=== PATIENT | female | born 1975 ===

== ENCOUNTER 2016-06-27 14:13 | Inpatient (IN) | payer SELFPAY ==
[2016-06-27] MEDS ORDERED: Sodium Chloride 0.9% 1,000 ML IV STA (14:57)
--- NOTE | 2016-06-27 15:34 | ED PDOC ---
HPI: General Adult Time Seen by Provider: 06/27/16 14:44 Chief Complaint (Nursing): Fever Chief Complaint (Provider): Fever History Per: Patient History/Exam Limitations: no limitations Onset/Duration Of Symptoms: Days (1 day) Have you had recent travel within the past 21 days to any of the following countries: [place], [place], [place] or [place]?: No Current Symptoms Are (Timing): Still Present Severity: Moderate Additional Complaint(s): Lauren Granda is a 41 year old female, with a past medical history of type 2 diabetes mellitus and hypertension, who presents to the emergency department for the evaluation of a fever, that the patient has been experiencing for 1 day. Associated headache, body aches, back pain, and "burning" dysuria are currently present. Denies photophobia, neck stiffness, urinary frequency, hematuria, a rash, edema, URI symptoms, or GI symptoms. Of note, patient has no known sick contacts. PMD: [facility] Past Medical History Reviewed: Historical Data, Nursing Documentation, Vital Signs Vital Signs: Last Vital Signs Temp 98 F 06/29/16 21:15 Pulse 87 06/29/16 21:15 Resp 20 06/29/16 21:15 BP 109/71 06/29/16 21:15 Pulse Ox 97 06/29/16 21:15 - Medical History PMH: Diabetes (type II), HTN, Hypercholesterolemia - Surgical History Surgical History: No Surg Hx - Family History Family History: States: No Known Family Hx - Social History Current smoker - smoking cessation education provided: No Ex-Smoker (has not smoked in the last 12 months): No Alcohol: None - Immunization History Hx Tetanus Toxoid Vaccination: No Hx Influenza Vaccination: Yes Hx Pneumococcal Vaccination: No - Home Medications Home Medications: Ambulatory Orders Medication Instructions Recorded Glipizide [Glucotrol] 10 mg PO BID 06/27/16 Lovastatin [Lovastatin] 40 mg PO DAILY 06/27/16 MetFORMIN [glucoPHAGE] 1,000 mg PO BID 06/27/16 SITagliptin [Januvia] 100 mg PO DAILY 06/27/16 Terbinafine HCl [Lamisil] 250 mg PO DAILY 06/27/16 - Allergies Allergies/Adverse Reactions: Allergies Allergy/AdvReac Type Severity Reaction Status Date / Time No Known Allergies Allergy Verified 09/26/13 17:05 Review of Systems ROS Statement: Except As Marked, All Systems Reviewed And Found Negative Constitutional: Positive for: Fever Eyes: Negative for: Other (photophobia) ENT: Negative for: Other (neck stiffness) Cardiovascular: Negative for: Edema Respiratory: Negative for: Other (URI symptoms) Gastrointestinal: Negative for: Other (GI symptoms) Genitourinary Female: Positive for: Dysuria ("burning"). Negative for: Frequency, Hematuria Musculoskeletal: Positive for: Back Pain, Other (body aches) Skin: Negative for: Rash Neurological: Positive for: Headache Physical Exam - Reviewed Nursing Documentation Reviewed: Yes Vital Signs Reviewed: Yes - Physical Exam Appears: Positive for: Non-toxic, In Acute Distress (fever at 101.3) Head Exam: Positive for: ATRAUMATIC, NORMAL INSPECTION, NORMOCEPHALIC Skin: Positive for: Normal Color, Warm, Dry Eye Exam: Positive for: EOMI, Normal appearance, PERRL ENT: Positive for: Normal ENT Inspection, Pharynx Is (clear), Other (tacky mucous membranes). Negative for: Pharyngeal Erythema, Tonsillar Exudate Neck: Positive for: Normal (no meningismus), Painless ROM, Supple Cardiovascular/Chest: Positive for: Regular Rate, Rhythm, Tachycardia. Negative for: Murmur Respiratory: Positive for: Normal Breath Sounds. Negative for: Wheezing, Respiratory Distress Gastrointestinal/Abdominal: Positive for: Normal Exam, Soft. Negative for: Tenderness Back: Positive for: Normal Inspection. Negative for: Decreased ROM Extremity: Positive for: Normal ROM. Negative for: Tenderness, Deformity Lymphatic: Negative for: Adenopathy Neurologic/Psych: Positive for: Alert, Oriented. Negative for: Motor/Sensory Deficits - Laboratory Results Result Diagrams: 06/29/16 05:50 06/28/16 06:20 - ECG O2 Sat by Pulse Oximetry: 98 (RA) Pulse Ox Interpretation: Normal Medical Decision Making Medical Decision Makin:44 Initial Impression: Fever Initial Plan: * Venous Blood Gas Shock Panel * CBC * CMP * PT/PTT * Lipase * Magnesium * Phosphorous * Urine * Urinalysis * Influenza A/B * Rapid Strep Group A Antigen * Sodium Chloride 0.9% 1,000 ml IV at 1,000 mls/hr * Toradol 15 mg IV * Acetaminophen 975 mg PO * Blood Culture * Urine Culture * Glucose, Blood, POC * Reevaluation Accession No. : [id number] Patient Name / ID : TORO UPTON / [id number] Exam Date : 06/27/2016 17:09:03 ( Approved ) Study Comment : Sex / Age : F / 41Y Creator : Jerad Brown MD Dictator : Jerad Brown MD Brick Chimney Builder : Pocket Grinder Operator : Jerad Brown MD Approver2 : Report Date : 06/27/2016 18:13:50 My Comment : PROCEDURE: CT Abdomen and pelvis dated 06/27/2016 HISTORY: Bilateral flank pain. Fever and dysuria. COMPARISON: Comparison made with CT scan abdomen and pelvis 05/26/2007. TECHNIQUE: Contiguous helical/transaxial sections of the abdomen pelvis performed without oral or intravenous contrast material. Coronal and Sagittal reformats generated. Radiation dose: Total exam DLP = 1077.47 mGy-cm. This CT exam was performed using one or more of the following dose reduction techniques: Automated exposure control, adjustment of the mA and/or kV according to patient size, and/or use of iterative reconstruction technique. FINDINGS: LOWER THORAX: Unremarkable. The lung bases are clear without focal consolidation or effusion. Minor bibasilar atelectasis. Small calcification left posteromedial lung base likely representing small calcified granuloma. No evidence of basilar pneumothorax. LIVER: . Liver is enlarged measuring over 23 cm in CC dimension. Moderate fatty hepatic infiltration. No obvious hepatic mass or collection. GALLBLADDER AND BILE DUCTS: Gallbladder is physiologically distended. No evidence of intraluminal gallbladder calculi PANCREAS: Visualized portions the pancreas grossly unremarkable. SPLEEN: The spleen exhibits normal size an attenuation pattern. ADRENALS: The no adrenal lesions. KIDNEYS AND URETERS: Kidneys exhibit relatively symmetric size. Tiny 2.4 mm nonobstructing calcification lower pole left kidney. There is a 2nd punctate calcification just medial and posterior to this calcification. No definitive right-sided calcifications. No evidence of hydronephrosis. BLADDER: Urinary bladder is appears incompletely distended which may account for slight thick-walled appearance. The possibility of a cystitis must be considered given the patient's history of fever and dysuria. . No evidence of intraluminal urinary bladder calculi. REPRODUCTIVE: In situ Copper-T IUD APPENDIX: Normal-appearing of fluid filled appendix seen on axial image number [id number]. No periappendiceal inflammatory changes. BOWEL: Evaluation of the bowel is limited due to the lack of oral contrast material. The stomach is incompletely distended which presumably accounts for thick- walled appearance. The possibility of gastritis or other intrinsic/ invasive wall lesion cannot be excluded. No evidence of acute mechanical bowel obstruction. Moderate amount of stool seen within the transverse and to a lesser degree descending sigmoid colon consistent with mild fecal retention/ constipation. PERITONEUM: Unremarkable. No fluid collection. No free air. Joya fat containing umbilical hernia. LYMPH NODES: No significant bulky adenopathy VASCULATURE: No evidence of abdominal aortic aneurysm BONES: Minor multilevel degenerative spondylosis of the lower thoracic and lumbar spine OTHER FINDINGS: None. IMPRESSION: Tiny nonobstructing calcifications of lower pole left kidney. No evidence of hydronephrosis. Wall thickening of the urinary bladder alum may in part be due to underdistention however given the patient's history of fever and dysuria, cystitis must be considered as well. Hepatomegaly with moderate to fairly significant diffuse fatty hepatic infiltration. See above discussion for additional findings and details. In situ Copper-T IUD. Labs demonstrate UTI. Clinically appears as pyelonephritis. IGGY HORVATH resident for [facility] Scribe Attestation: Documented by Oliver Bowman, acting as a scribe for Little Ramirez MD. Provider Scribe Attestation: All medical record entries made by the Scribe were at my direction and personally dictated by me. I have reviewed the chart and agree that the record accurately reflects my personal performance of the history, physical exam, medical decision making, and the department course for this patient. I have also personally directed, reviewed, and agree with the discharge instructions and disposition. Disposition - Clinical Impression Clinical Impression: Pyelonephritis - Disposition Disposition Time: 18:00 Condition: SERIOUS - Pt Status Changed To: Hospital Disposition Of: Observation - POA Present On Arrival: Poor Glycemic Control
[2016-06-27 15:36] LABS: VENOUS BLOOD GAS BASE EXCESS -1.5 mmol/L (0.0-2.0); VENOUS BLOOD GAS PCO2 37 mmHg (40-60)
[2016-06-27 15:38] LABS: BASO % 0.3 % (0.0-2.0); EOS % 0.1 % (0.0-4.0); HEMATOCRIT 38.7 % (34.0-47.0); LYMPH # 0.5 K/uL (1.0-4.3); LYMPH % 4.9 % (20.0-40.0); MEAN CELL VOLUME 85.1 fl (81.0-99.0); MEAN PLATELET VOLUME 8.3 fl (7.2-11.7); MONO # 0.4 K/uL (0.0-0.8); MONO % 3.2 % (0.0-10.0); NEUT # 10.1 K/uL (1.8-7.0); NEUT % 91.5 % (50.0-75.0); NRBC % 0.1 % (0.0-0.0); PLATELET COUNT 171 K/uL (130-400); RED CELL DISTRIBUTION WIDTH 13.3 % (11.5-14.5); WHITE BLOOD COUNT 11.1 K/uL (4.8-10.8)
[2016-06-27 15:43] LABS: URINE BILIRUBIN NEGATIVE (NEGATIVE); URINE BLOOD NEGATIVE (NEGATIVE); URINE COLOR YELLOW (YELLOW); URINE GLUCOSE (UA) >=500 mg/dL (Normal); URINE KETONE 80 mg/dL (NEGATIVE); URINE PROTEIN 30 mg/dL (NEGATIVE)
[2016-06-27 15:44] LABS: RBC URINE 5 /hpf (0-3); URINE BACTERIA RARE (<OCC); URINE LEUKOCYTE ESTERASE NEGATIVE Leu/uL (Negative); WBC URINE 23 /hpf (0-5)
[2016-06-27 15:47] LABS: ALB/GLOB RATIO 1.5 (1.0-2.1); ALKALINE PHOSPHATASE 98 U/L (38-126); ALT/SGPT 46 U/L (9-52); AST/SGOT 33 U/L (14-36); BILIRUBIN,TOTAL 0.7 mg/dl (0.2-1.3); BLOOD UREA NITROGEN 7 mg/dl (7-17); CALCIUM 9.2 mg/dL (8.4-10.2); CARBON DIOXIDE 21 mmol/L (22-30); CHLORIDE 97 mmol/L (98-107); GFR AFRICAN-AMERICAN > 60; GLUCOSE,RANDOM 229 mg/dL (65-105); LIPASE 44 U/L (23-300); MAGNESIUM 1.9 MG/DL (1.6-2.3); PHOSPHOROUS 2.8 mg/dl (2.5-4.5); POTASSIUM 4.1 MMOL/L (3.6-5.0); SODIUM 130 mmol/l (132-148); TOTAL PROTEIN 7.3 G/DL (6.3-8.2)
[2016-06-27] MEDS ORDERED: cefTRIAXone (Rocephin) 1 gm Inj ONE (15:55)
[2016-06-27 16:02] LABS: PARTIAL THROMBOPLASTIN TIME 26.3 SECONDS (23.3-32.5)
[2016-06-27 17:32] LABS: NEUTROPHIL 90 % (42-75); REACTIVE LYMPHOCYTES 1 % (0-0); TOTAL CELLS COUNTED 100
--- NOTE | 2016-06-27 18:15 | CT ---
PROCEDURE: CT Abdomen and pelvis dated 06/27/2016 HISTORY: Bilateral flank pain. Fever and dysuria. COMPARISON: Comparison made with CT scan abdomen and pelvis 05/26/2007. TECHNIQUE: Contiguous helical/transaxial sections of the abdomen pelvis performed without oral or intravenous contrast material. Coronal and Sagittal reformats generated. Radiation dose: Total exam DLP = 1077.47 mGy-cm. This CT exam was performed using one or more of the following dose reduction techniques: Automated exposure control, adjustment of the mA and/or kV according to patient size, and/or use of iterative reconstruction technique. FINDINGS: LOWER THORAX: Unremarkable. The lung bases are clear without focal consolidation or effusion. Minor bibasilar atelectasis. Small calcification left posteromedial lung base likely representing small calcified granuloma. No evidence of basilar pneumothorax. LIVER: . Liver is enlarged measuring over 23 cm in CC dimension. Moderate fatty hepatic infiltration. No obvious hepatic mass or collection. GALLBLADDER AND BILE DUCTS: Gallbladder is physiologically distended. No evidence of intraluminal gallbladder calculi PANCREAS: Visualized portions the pancreas grossly unremarkable. SPLEEN: The spleen exhibits normal size an attenuation pattern. ADRENALS: The no adrenal lesions. KIDNEYS AND URETERS: Kidneys exhibit relatively symmetric size. Tiny 2.4 mm nonobstructing calcification lower pole left kidney. There is a 2nd punctate calcification just medial and posterior to this calcification. No definitive right-sided calcifications. No evidence of hydronephrosis. BLADDER: Urinary bladder is appears incompletely distended which may account for slight thick-walled appearance. The possibility of a cystitis must be considered given the patient's history of fever and dysuria. . No evidence of intraluminal urinary bladder calculi. REPRODUCTIVE: In situ Copper-T IUD APPENDIX: Normal-appearing of fluid filled appendix seen on axial image number [id number]. No periappendiceal inflammatory changes. BOWEL: Evaluation of the bowel is limited due to the lack of oral contrast material. The stomach is incompletely distended which presumably accounts for thick-walled appearance. The possibility of gastritis or other intrinsic/ invasive wall lesion cannot be excluded. No evidence of acute mechanical bowel obstruction. Moderate amount of stool seen within the transverse and to a lesser degree descending sigmoid colon consistent with mild fecal retention/constipation. PERITONEUM: Unremarkable. No fluid collection. No free air. Joya fat containing umbilical hernia. LYMPH NODES: No significant bulky adenopathy VASCULATURE: No evidence of abdominal aortic aneurysm BONES: Minor multilevel degenerative spondylosis of the lower thoracic and lumbar spine OTHER FINDINGS: None. IMPRESSION: Tiny nonobstructing calcifications of lower pole left kidney. No evidence of hydronephrosis. Wall thickening of the urinary bladder alum may in part be due to underdistention however given the patient's history of fever and dysuria, cystitis must be considered as well. Hepatomegaly with moderate to fairly significant diffuse fatty hepatic infiltration. See above discussion for additional findings and details. In situ Copper-T IUD.
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
[2016-06-27] MEDS: Sodium Chloride 0.9% 1,000 ML IV SCH ×5 (21:15→23:15)
--- NOTE | 2016-06-27 22:00 | PCM.RRTMUL ---
UNIVERSITY RELATIONS VICE PRESIDENT Nurse Assessment - Situation UNIVERSITY RELATIONS VICE PRESIDENT Responder Arrival Time:: 21:29 Location:: [facility] Room Number:: 663-1 UNIVERSITY RELATIONS VICE PRESIDENT Reason for Call: Tachycardia - IV IV Inserted during UNIVERSITY RELATIONS VICE PRESIDENT?: No - Respiratory Oxygen Delivery Method:: Room Air Received Nebulizer Treatments:: No Was the Patient Ventilated with Bag/Mask 100% O2?: No Secretions Suctioned?: No Was the Patient Intubated?: No Was the Patient Placed on a Ventilator?: No - Diagnostic Test Ordered EKG:: No Chest X-Ray:: No CT Scan:: No - Vital Signs Blood Pressure:: 110/60 Pulse Rate:: 142 Respiratory Rate:: 18 Temperature:: 100.4 F - Lilian Coma Scale Coma Scale Eye Opening:: Spontaneous Coma Scale Motor:: Obeys Commands Movement Coma Scale Verbal:: Oriented Coma Scale Total:: 15 - Time UNIVERSITY RELATIONS VICE PRESIDENT Ended Time UNIVERSITY RELATIONS VICE PRESIDENT Ended:: 21:35 - Vital Signs at end of UNIVERSITY RELATIONS VICE PRESIDENT Blood Pressure:: 110/60 Pulse Rate:: 112 Respiratory Rate:: 16 Responder Note - Time UNIVERSITY RELATIONS VICE PRESIDENT was called Time UNIVERSITY RELATIONS VICE PRESIDENT was called:: 21:27 (:) - Location Location: [address] [place] [address] - UNIVERSITY RELATIONS VICE PRESIDENT Team UNIVERSITY RELATIONS VICE PRESIDENT Leader:: Aric Reyna Resident:: Gerry Gregory - Vital Signs at Initial Assessment Blood Pressure:: 110/60 Pulse Rate:: 142 Respiratory Rate:: 18 Temperature:: 100.4 F - Chest Pain Chest Pain:(If answer is yes, complete next 2 questions): No - Seizure Seizure:: No New Onset:: No - Neurological Status Neurological Status (Select all that apply):: Alert, Responsive, Oriented, Verbal, Follows Commands - Respiratory UNIVERSITY RELATIONS VICE PRESIDENT Delivery Method:: Room Air - Gastro-Intestinal Current Diet Ordered: Current Diet 06/27/16 Dinner Consistent Carbohydrate [DIET] Summary - Summary of Event Summary of Event: UNIVERSITY RELATIONS VICE PRESIDENT was called at 21: 27 for a 41 y/o F hx of HTN, HLD, DM2 , admitted today in the afternoon due to possible complicated cystitis.Patient was noticed by nurse with tachycardia HR: 142/min. On responder arrival patient is lying down, AAOx3, verbal,responsive, follow commands and reports fever, generalized shaking chills and feels thirsty . She denies headache, chest pain, SOB, N/V/D , Abd pain, flank pain, dysuria,hematuria. Patient reports chills and fever since yesterday. Was febrile in ER 102 F, reduced to 99 F before going to floor. Initial VS: BP: 110/60 mmhg. HR: 142 b/min Temp:100.4F PE GA: lying down,verbal,responsive, follow commands with generalized shaking chills CV: + S1, S2, Tachycardia. HR: 142 b/min. NO M/R/G. Resp: CTA, No rhonci, wheezing, rales. Abd: + Bs, Soft. No TD. No HSM. Neg CVTA Neuro: AAO x 3. no focal motor deficit. Brudzinsky neg Impression: Type 2 DM. Complicated cystitis vs pyelonephritis. sinus Tachycardia secondary to fever Plan -Continue fluids -C/W antibiotic -Tylenol PRN fever -F/U 21: 42 Patient stable, HR: 112 b/min. Able to tolerate cold water. Reports feeling better.
[2016-06-28] MEDS: Sodium Chloride 0.9% 1,000 ML IV SCH ×8 (01:27→13:44)
--- NOTE | 2016-06-28 01:31 | CP.PCM.PCO ---
Assessment/Plan - Assessment/Plan Assessment: Fever spike 89F paged by nurse due to fever spike despite rocephin will start vanc and zosyn IV empirically for now repeat lactic acid BCx and UCX drawn, pending
[2016-06-28] MEDS: Piperacillin/Tazobact 3.375 GM in Sodium Chloride 0.9% 100 ML IVPB SCH ×3 (02:18→16:42)
[2016-06-28 07:12] LABS: ALB/GLOB RATIO 1.3 (1.0-2.1); ALKALINE PHOSPHATASE 87 U/L (38-126); ALT/SGPT 53 U/L (9-52); AST/SGOT 51 U/L (14-36); BILIRUBIN,TOTAL 0.6 mg/dl (0.2-1.3); BLOOD UREA NITROGEN 10 mg/dl (7-17); CALCIUM 8.2 mg/dL (8.4-10.2); CARBON DIOXIDE 18 mmol/L (22-30); CHLORIDE 106 mmol/L (98-107); GFR AFRICAN-AMERICAN > 60; GLUCOSE,RANDOM 205 mg/dL (65-105); POTASSIUM 3.7 MMOL/L (3.6-5.0); SODIUM 136 mmol/l (132-148)
[2016-06-28 07:54] LABS: BASO % 0.4 % (0.0-2.0); EOS % 0.5 % (0.0-4.0); HEMATOCRIT 36.8 % (34.0-47.0); LYMPH # 0.7 K/uL (1.0-4.3); LYMPH % 11.7 % (20.0-40.0); MEAN CELL VOLUME 85.9 fl (81.0-99.0); MEAN CORPUSCULAR HGB CONC 33.8 g/dL (33.0-37.0); MEAN PLATELET VOLUME 7.8 fl (7.2-11.7); MONO # 0.3 K/uL (0.0-0.8); MONO % 5.2 % (0.0-10.0); NEUT # 4.7 K/uL (1.8-7.0); NEUT % 82.2 % (50.0-75.0); NRBC % 0.1 % (0.0-0.0); RED CELL DISTRIBUTION WIDTH 13.7 % (11.5-14.5); WHITE BLOOD COUNT 5.8 K/uL (4.8-10.8)
[2016-06-29] MEDS: Piperacillin/Tazobact 3.375 GM in Sodium Chloride 0.9% 100 ML IVPB SCH ×3 (00:41→16:06)
[2016-06-29 06:45] LABS: BASO % 0.5 % (0.0-2.0); EOS % 0.8 % (0.0-4.0); HEMATOCRIT 33.6 % (34.0-47.0); LYMPH # 1.1 K/uL (1.0-4.3); LYMPH % 21.9 % (20.0-40.0); MEAN CELL VOLUME 85.1 fl (81.0-99.0); MEAN CORPUSCULAR HEMOGLOBIN 29.2 pg (27.0-31.0); MEAN CORPUSCULAR HGB CONC 34.3 g/dL (33.0-37.0); MEAN PLATELET VOLUME 8.5 fl (7.2-11.7); MONO # 0.4 K/uL (0.0-0.8); MONO % 8.4 % (0.0-10.0); NEUT # 3.6 K/uL (1.8-7.0); NEUT % 68.4 % (50.0-75.0); NRBC % 0.1 % (0.0-0.0); RED CELL DISTRIBUTION WIDTH 13.6 % (11.5-14.5); WHITE BLOOD COUNT 5.2 K/uL (4.8-10.8)
[2016-06-29] MEDS: cefTRIAXone 2 GM in Sodium Chloride 0.9% 100 ML IVPB SCH (08:40)
--- NOTE | 2016-06-29 12:07 | CP.PCM.PN ---
Subjective - Date & Time of Evaluation Date of Evaluation: 06/29/16 Time of Evaluation: 07:30 - Subjective Subjective: Patient was seen and examined at bedside this morning. Patient still complaining of intermittent headaches, bilateral, no radiating to her neck. Denies chills, nausea, vomiting, chest pain, SOB, abdominal pain, urinary symptoms. Denies body aches this morning. Tolerating PO without difficulty. Having regular and normal bowel movements. Objective - Vital Signs/Intake and Output Vital Signs (last 24 hours): Temp Pulse Resp BP Pulse Ox 97.7 F 81 18 105/70 98 06/29/16 07:52 06/29/16 07:52 06/29/16 07:52 06/29/16 07:52 06/29/16 07:52 - Medications Medications: Current Medications Acetaminophen (Tylenol 325mg Tab) 650 mg PO Q6 PRN PRN Reason: Fever >100.4 F Last Admin: 06/28/16 16:39 Dose: 650 mg Atorvastatin Calcium (Lipitor) 10 mg PO DAILY [facility] Last Admin: 06/29/16 08:39 Dose: 10 mg Piperacillin Sod/Tazobactam (Sod 3.375 gm/ Sodium Chloride) 100 mls @ 100 mls/ hr IVPB Q8 [facility] Last Admin: 06/29/16 08:39 Dose: 100 mls/hr Ceftriaxone Sodium 2 gm/ (Sodium Chloride) 100 mls @ 100 mls/hr IVPB DAILY [facility] Last Admin: 06/29/16 08:40 Dose: 100 mls/hr Ketorolac Tromethamine (Toradol) 10 mg PO Q6 PRN PRN Reason: Pain, severe (8-10) Last Admin: 06/29/16 08:47 Dose: 10 mg Metformin HCl (Glucophage) 1,000 mg PO BID [facility] Last Admin: 06/29/16 08:39 Dose: 1,000 mg Morphine Sulfate (Morphine) 2 mg IVP Q4 PRN PRN Reason: Pain, severe (8-10) Last Admin: 06/28/16 13:43 Dose: 2 mg Sitagliptin Phosphate (Januvia) 100 mg PO DAILY [facility] Last Admin: 06/29/16 08:39 Dose: 100 mg - Labs Labs: 06/29/16 05:50 PT 11.4 SECONDS (9.6-11.2) H 06/27/16 15:10 INR 1.10 (0.92-1.08) H 06/27/16 15:10 APTT 26.3 SECONDS (23.3-32.5) 06/27/16 15:10 - Constitutional Appears: Non-toxic, No Acute Distress - ENT Exam ENT Exam: Mucous Membranes Moist - Neck Exam Neck Exam: Full ROM, Normal Inspection. absent: Meningismus, Tenderness - Respiratory Exam Respiratory Exam: Clear to Ausculation Bilateral, NORMAL BREATHING PATTERN. absent: Rales, Rhonchi, Wheezes, Respiratory Distress - Cardiovascular Exam Cardiovascular Exam: REGULAR RHYTHM, +S1, +S2 - GI/Abdominal Exam GI & Abdominal Exam: Soft, Normal Bowel Sounds. absent: Distended, Firm, Rigid , Tenderness - Extremities Exam Extremities Exam: Normal Inspection. absent: Calf Tenderness, Pedal Edema - Back Exam Back Exam: NORMAL INSPECTION. absent: CVA tenderness (L), CVA tenderness (R) - Neurological Exam Neurological Exam: Alert, Awake, Oriented x3 - Skin Skin Exam: Dry, Intact, Normal Color Assessment and Plan - Assessment and Plan (Free Text) Assessment: This is a 41 y/o female with PMHx of DM type 2, hyperlipidemia, admitted due to complicated cystitis, still spiking fever on antibiotics. Plan: Complicated Cystitis in a Diabetic patient -Afebrile for 12 hours, but yesterday had a temp of 102.5 F -Rest of VS WNL -CBC: resolved leukocytosis -c/w Ceftriaxone 2 GM IVP daily -c/w Zosyn 3.375 GM IVP Q8 hours -C/w Tylenol 650 mg PRN Q 6 for fever -ID consult appreciated. F/U recommendations. Patient still spiking on two antibiotics. -Abdominal CT scan on 06/27/16 showed: tiny nonobstructing calcifications of lower pole left kidney. No evidence of hydronephrosis Wall thickening of the urinary bladder. Uncontrolled Diabetes Mellitus -Persistent hyperglycemia -HgbA1C on 04/21/16 was 8.4 -Held home Metformin 1000 mg BID PO -c/w home Januvia 100 mg daily PO -C/w home Glucotrol 10 mg BIDAC -C/w ACCU-CHEK -c/w Insulin by protocol LSSD -C/w Hypoglycemic protocol -c/w Atorvastatin 10 mg PO daily -continue monitoring DVT Prophylaxis Patient is ambulating SCDs while in bed Diet diabetic diet
[2016-06-29] MEDS ORDERED: Dextrose 50% SYRINGE Inj (50 ml) IV PRN (12:13)
[2016-06-29] MEDS ORDERED: Glucagon Recombinant 1 mg Inj IM PRN (12:13)
[2016-06-29] MEDS: Insulin Regular 100 units/ml SC SCH ×2 (16:06→22:00)
--- NOTE | 2016-06-29 19:12 | CP.PCM.PN ---
Subjective - Date & Time of Evaluation Date of Evaluation: 06/29/16 Time of Evaluation: 19:10 - Subjective Subjective: ID NOTE PATIENT ,CHART REVIEWED AWAIT CULTURES COMTINUE ROCEPHEN/ZOSYN FOR PRESENT Objective - Vital Signs/Intake and Output Vital Signs (last 24 hours): Temp Pulse Resp BP Pulse Ox 97.7 F 81 18 105/70 98 06/29/16 07:52 06/29/16 07:52 06/29/16 07:52 06/29/16 07:52 06/29/16 07:52 - Medications Medications: Current Medications Acetaminophen (Tylenol 325mg Tab) 650 mg PO Q6 PRN PRN Reason: Fever >100.4 F Last Admin: 06/28/16 16:39 Dose: 650 mg Atorvastatin Calcium (Lipitor) 10 mg PO DAILY [facility] Last Admin: 06/29/16 08:39 Dose: 10 mg Dextrose (Dextrose 50% Inj) 0 ml IV STAT PRN; Protocol PRN Reason: Hyglycemia Protocol Dextrose (Glutose 15) 0 gm PO ONCE PRN; Protocol PRN Reason: Hypoglycemia Protocol Glipizide (Glucotrol) 10 mg PO BIDAC [facility] Last Admin: 06/29/16 16:05 Dose: 10 mg Glucagon (Glucagen Diagnostic Kit) 0 mg IM STAT PRN; Protocol PRN Reason: Hypoglycemia Protocol Piperacillin Sod/Tazobactam (Sod 3.375 gm/ Sodium Chloride) 100 mls @ 100 mls/ hr IVPB Q8 [facility] Last Admin: 06/29/16 16:06 Dose: 100 mls/hr Ceftriaxone Sodium 2 gm/ (Sodium Chloride) 100 mls @ 100 mls/hr IVPB DAILY [facility] Last Admin: 06/29/16 08:40 Dose: 100 mls/hr Insulin Human Regular (Humulin R) 0 units SC ACHS KAREY PRN Reason: Protocol Last Admin: 06/29/16 16:06 Dose: 2 units Ketorolac Tromethamine (Toradol) 10 mg PO Q6 PRN PRN Reason: Pain, severe (8-10) Last Admin: 06/29/16 16:04 Dose: 10 mg Morphine Sulfate (Morphine) 2 mg IVP Q4 PRN PRN Reason: Pain, severe (8-10) Last Admin: 06/28/16 13:43 Dose: 2 mg Sitagliptin Phosphate (Januvia) 100 mg PO DAILY [facility] Last Admin: 06/29/16 08:39 Dose: 100 mg - Labs Labs: 06/29/16 05:50 PT 11.4 SECONDS (9.6-11.2) H 06/27/16 15:10 INR 1.10 (0.92-1.08) H 06/27/16 15:10 APTT 26.3 SECONDS (23.3-32.5) 06/27/16 15:10
[2016-06-30] MEDS: Piperacillin/Tazobact 3.375 GM in Sodium Chloride 0.9% 100 ML IVPB SCH ×2 (00:28→08:39)
[2016-06-30] MEDS: Insulin Regular 100 units/ml SC SCH ×2 (06:50→11:07)
[2016-06-30 07:53] VITALS: BP 104/66; PULSE 69; RESP 16; TEMP 98.2; O2SAT 99
[2016-06-30 08:22] LABS: HEMATOCRIT 36.2 % (34.0-47.0); MEAN CELL VOLUME 85.2 fl (81.0-99.0); MEAN CORPUSCULAR HEMOGLOBIN 28.5 pg (27.0-31.0); MEAN CORPUSCULAR HGB CONC 33.4 g/dL (33.0-37.0); RED CELL DISTRIBUTION WIDTH 13.2 % (11.5-14.5); WHITE BLOOD COUNT 4.8 K/uL (4.8-10.8)
[2016-06-30 08:30] LABS: BLOOD UREA NITROGEN 9 mg/dl (7-17); CALCIUM 8.8 mg/dL (8.4-10.2); CARBON DIOXIDE 22 mmol/L (22-30); CHLORIDE 106 mmol/L (98-107); GFR AFRICAN-AMERICAN > 60; GLUCOSE,RANDOM 169 mg/dL (65-105); POTASSIUM 4.1 MMOL/L (3.6-5.0); SODIUM 138 mmol/l (132-148)
[2016-06-30] MEDS: cefTRIAXone 2 GM in Sodium Chloride 0.9% 100 ML IVPB SCH (08:40)
--- NOTE | 2016-06-30 08:54 | CP.PCM.PN ---
Objective - Vital Signs/Intake and Output Vital Signs (last 24 hours): Temp Pulse Resp BP Pulse Ox 98.2 F 69 16 104/66 99 06/30/16 07:53 06/30/16 07:53 06/30/16 07:53 06/30/16 07:53 06/30/16 07:53 - Medications Medications: Current Medications Acetaminophen (Tylenol 325mg Tab) 650 mg PO Q6 PRN PRN Reason: Fever >100.4 F Last Admin: 06/28/16 16:39 Dose: 650 mg Atorvastatin Calcium (Lipitor) 10 mg PO DAILY [facility] Last Admin: 06/30/16 08:38 Dose: 10 mg Dextrose (Dextrose 50% Inj) 0 ml IV STAT PRN; Protocol PRN Reason: Hyglycemia Protocol Dextrose (Glutose 15) 0 gm PO ONCE PRN; Protocol PRN Reason: Hypoglycemia Protocol Glipizide (Glucotrol) 10 mg PO BIDAC [facility] Last Admin: 06/30/16 08:38 Dose: 10 mg Glucagon (Glucagen Diagnostic Kit) 0 mg IM STAT PRN; Protocol PRN Reason: Hypoglycemia Protocol Piperacillin Sod/Tazobactam (Sod 3.375 gm/ Sodium Chloride) 100 mls @ 100 mls/ hr IVPB Q8 [facility] Last Admin: 06/30/16 08:39 Dose: 100 mls/hr Ceftriaxone Sodium 2 gm/ (Sodium Chloride) 100 mls @ 100 mls/hr IVPB DAILY [facility] Last Admin: 06/30/16 08:40 Dose: 100 mls/hr Insulin Human Regular (Humulin R) 0 units SC ACHS [facility] PRN Reason: Protocol Last Admin: 06/30/16 06:50 Dose: 2 units Ketorolac Tromethamine (Toradol) 10 mg PO Q6 PRN PRN Reason: Pain, severe (8-10) Last Admin: 06/30/16 06:51 Dose: 10 mg Morphine Sulfate (Morphine) 2 mg IVP Q4 PRN PRN Reason: Pain, severe (8-10) Last Admin: 06/28/16 13:43 Dose: 2 mg Sitagliptin Phosphate (Januvia) 100 mg PO DAILY [facility] Last Admin: 06/30/16 08:38 Dose: 100 mg - Labs Labs: 06/30/16 06:00 06/30/16 06:00 PT 11.4 SECONDS (9.6-11.2) H 06/27/16 15:10 INR 1.10 (0.92-1.08) H 06/27/16 15:10 APTT 26.3 SECONDS (23.3-32.5) 06/27/16 15:10
--- NOTE | 2016-06-30 12:27 | CP.PCM.DIS ---
Provider - Provider Date of Admission: 06/28/16 17:03 Attending physician: Samia Olivo MD Primary care physician: [facility] Consults: ID: Jorje Pierce Time Spent in preparation of Discharge (in minutes): 30 Diagnosis - Discharge Diagnosis (1) Cystitis Status: Acute Hospital Course - Lab Results Lab Results: Most Recent Lab Values WBC 4.8 K/uL (4.8-10.8) 06/30/16 06:00 RBC 4.25 Mil/uL (3.80-5.20) 06/30/16 06:00 Hgb 12.1 g/dL (12.0-16.0) 06/30/16 06:00 Hct 36.2 % (34.0-47.0) 06/30/16 06:00 MCV 85.2 fl (81.0-99.0) 06/30/16 06:00 MCH 28.5 pg (27.0-31.0) 06/30/16 06:00 MCHC 33.4 g/dL (33.0-37.0) 06/30/16 06:00 RDW 13.2 % (11.5-14.5) 06/30/16 06:00 Plt Count 190 K/uL (130-400) 06/30/16 06:00 MPV 8.5 fl (7.2-11.7) 06/29/16 05:50 Neut % (Auto) 68.4 % (50.0-75.0) 06/29/16 05:50 Lymph % (Auto) 21.9 % (20.0-40.0) 06/29/16 05:50 [place] % (Auto) 8.4 % (0.0-10.0) 06/29/16 05:50 Eos % (Auto) 0.8 % (0.0-4.0) 06/29/16 05:50 Baso % (Auto) 0.5 % (0.0-2.0) 06/29/16 05:50 Neut # 3.6 K/uL (1.8-7.0) 06/29/16 05:50 Lymph # 1.1 K/uL (1.0-4.3) 06/29/16 05:50 [place] # 0.4 K/uL (0.0-0.8) 06/29/16 05:50 Eos # 0.0 K/uL (0.0-0.7) 06/29/16 05:50 Baso # 0.0 K/uL (0.0-0.2) 06/29/16 05:50 Neutrophils % (Manual) 90 % (42-75) H 06/27/16 15:10 Band Neutrophils % 1 % (0-2) 06/27/16 15:10 Lymphocytes % (Manual) 5 % (20-50) L 06/27/16 15:10 Reactive Lymphs % 1 % (0-0) H 06/27/16 15:10 Monocytes % (Manual) 3 % (0-10) 06/27/16 15:10 Toxic Granulation Present 06/27/16 15:10 Platelet Estimate Normal (NORMAL) 06/27/16 15:10 Hypochromasia (manual) Slight 06/27/16 15:10 PT 11.4 SECONDS (9.6-11.2) H 06/27/16 15:10 INR 1.10 (0.92-1.08) H 06/27/16 15:10 APTT 26.3 SECONDS (23.3-32.5) 06/27/16 15:10 pO2 26 mm/Hg (30-55) L 06/27/16 15:31 VBG pH 7.40 (7.32-7.43) 06/27/16 15:31 VBG pCO2 37 mmHg (40-60) L 06/27/16 15:31 VBG HCO3 22.4 mmol/L 06/27/16 15:31 VBG Total CO2 24.0 mmol/L (22-28) 06/27/16 15:31 VBG O2 Sat (Calc) 54.3 % (40-65) 06/27/16 15:31 VBG Base Excess -1.5 mmol/L (0.0-2.0) L 06/27/16 15:31 VBG Potassium 4.0 mmol/L (3.6-5.2) 06/27/16 15:31 Sodium 130.0 mmol/L (132-148) L 06/27/16 15:31 Chloride 98.0 mmol/L (98-107) 06/27/16 15:31 Glucose 231 mg/dL (65-105) H 06/27/16 15:31 Lactate 1.3 mmol/L (0.7-2.1) 06/27/16 15:31 FiO2 21.0 % 06/27/16 15:31 Sodium 138 mmol/l (132-148) 06/30/16 06:00 Potassium 4.1 MMOL/L (3.6-5.0) 06/30/16 06:00 Chloride 106 mmol/L (98-107) 06/30/16 06:00 Carbon Dioxide 22 mmol/L (22-30) 06/30/16 06:00 Anion Gap 14 (10-20) 06/30/16 06:00 BUN 9 mg/dl (7-17) 06/30/16 06:00 Creatinine 0.5 mg/dL (0.7-1.2) L 06/30/16 06:00 Est GFR ( Amer) > 60 06/30/16 06:00 Est GFR (Non-Af Amer) > 60 06/30/16 06:00 POC Glucose (mg/dL) 269 mg/dL (65-110) H 06/30/16 10:42 Random Glucose 169 mg/dL (65-105) H 06/30/16 06:00 Calcium 8.8 mg/dL (8.4-10.2) 06/30/16 06:00 Phosphorus 2.8 mg/dl (2.5-4.5) 06/27/16 15:10 Magnesium 1.9 MG/DL (1.6-2.3) 06/27/16 15:10 Total Bilirubin 0.6 mg/dl (0.2-1.3) 06/28/16 06:20 AST 51 U/L (14-36) H D 06/28/16 06:20 ALT 53 U/L (9-52) H 06/28/16 06:20 Alkaline Phosphatase 87 U/L (38-126) 06/28/16 06:20 Total Protein 6.0 G/DL (6.3-8.2) L 06/28/16 06:20 Albumin 3.4 g/dL (3.5-5.0) L D 06/28/16 06:20 Globulin 2.6 gm/dL (2.2-3.9) 06/28/16 06:20 Albumin/Globulin Ratio 1.3 (1.0-2.1) 06/28/16 06:20 Lipase 44 U/L (23-300) 06/27/16 15:10 Venous Blood Potassium 4.0 mmol/L (3.6-5.2) 06/27/16 15:31 Urine Color Yellow (YELLOW) 06/27/16 15:10 Urine Clarity Slight-cloudy (Clear) 06/27/16 15:10 Urine pH 6.0 (5.0-8.0) 06/27/16 15:10 Ur Specific [place] 1.022 (1.003-1.030) 06/27/16 15:10 Urine Protein 30 mg/dL (NEGATIVE) 06/27/16 15:10 Urine Glucose (UA) >=500 mg/dL (Normal) 06/27/16 15:10 Urine Ketones 80 mg/dL (NEGATIVE) 06/27/16 15:10 Urine Blood Negative (NEGATIVE) 06/27/16 15:10 Urine Nitrate Positive (NEGATIVE) H 06/27/16 15:10 Urine Bilirubin Negative (NEGATIVE) 06/27/16 15:10 Urine Urobilinogen 2.0 mg/dL (0.2-1.0) H 06/27/16 15:10 Ur Leukocyte Esterase Negative Stephan/uL (Negative) 06/27/16 15:10 Urine RBC (Auto) 5 /hpf (0-3) H 06/27/16 15:10 Urine Microscopic WBC 23 /hpf (0-5) H 06/27/16 15:10 Ur Squamous Epith Cells 5 /hpf (0-5) 06/27/16 15:10 Urine Bacteria Rare (<OCC) 06/27/16 15:10 HIV-1 Ab Rapid Screen Non reactive (NON REAC) 06/30/16 06:00 Influenza Typ A,B (EIA) Negative for flu a/b (NEGATIVE) 06/27/16 15:10 Grp A Beta Strep Ag Negative (NEGATIVE) 06/27/16 15:10 - Hospital Course Hospital Course: 41 y/o female with PMHx of DM type 2, hyperlipidemia, admitted due to complicated cystitis that was treated with IV Ceftriaxone 2 GM IVP daily and Zosyn 3.375 GM IVP Q8 hours. Abdominal CT scan on 06/27/16 showed: tiny nonobstructing calcifications of lower pole left kidney. No evidence of hydronephrosis Wall thickening of the urinary bladder. Urine culture showed E- coli >100,000 sensitive to Zosyn. Today pt asymptomatic afebrile for 24hours, no leukocytois, medically stable to be discharge and ID recommend Ceftin 500mg daily po x 10 days. Discharge Medication: Ceftin 500mg daily po x 10 Continue home medications: Glipizide [Glucotrol] 10 mg PO BID Lovastatin [Lovastatin] 40 mg PO DAILY MetFORMIN [glucoPHAGE] 1,000 mg PO BID SITagliptin [Januvia] 100 mg PO DAILY Terbinafine HCl [Lamisil] 250 mg PO DAILY Follow up with [facility] in 1 week. Central Office will contact patient next business day for follow up appointment. Discharge Exam - Head Exam Head Exam: ATRAUMATIC, NORMAL INSPECTION, NORMOCEPHALIC - Eye Exam Eye Exam: EOMI - ENT Exam ENT Exam: Mucous Membranes Moist - Neck Exam Neck exam: Full Rom - Respiratory Exam Respiratory Exam: Clear to PA & Lateral - Cardiovascular Exam Cardiovascular Exam: REGULAR RHYTHM, +S1, +S2. absent: Systolic Murmur - GI/Abdominal Exam GI & Abdominal Exam: Normal Bowel Sounds, Soft. absent: Distended, Rigid, Tenderness - Extremities Exam Extremities exam: full ROM - Back Exam Back exam: FULL ROM. absent: CVA tenderness (L), CVA tenderness (R) - Neurological Exam Neurological exam: CN II-XII Intact, Normal Gait, Oriented x3, Reflexes Normal - Psychiatric Exam Psychiatric exam: Normal Affect, Normal Mood - Skin Skin Exam: Normal Color, Warm Discharge Plan - Discharge Medications Prescriptions: Cefuroxime Axetil [Cefuroxime] 500 mg PO ONCE #10 tablet - Follow Up Plan Condition: FAIR Disposition: HOME/ ROUTINE Instructions: Urinary Tract Infection in Women (DC), Urinary Tract Infection in Women (GEN) Additional Instructions: follow up in 1 week. central scheduling will call patient for appointment on next business day. ED precaution given. Follow [facility] at [phone] Referrals: [facility] [place] [Outside]
== END 2016-06-30 14:13 | disposition home or self-care (01) | DRG 901 ==
LOC: H.ER 14:13 → H.ERHOLD 19:17 → H.MEDSURG1 21:41 → OBSVTOIN 06-28 17:03
PROVIDERS: ADMIT Family Medicine Geriatric Medicine; ATTEND Family Medicine Geriatric Medicine
DX: A41.9 Sepsis, unspecified organism (principal); E11.65 Type 2 diabetes mellitus with hyperglycemia; I10 Essential (primary) hypertension; N30.90 Cystitis, unspecified without hematuria; E78.00 Pure hypercholesterolemia, unspecified; E78.5 Hyperlipidemia, unspecified; Z16.11 Resistance to penicillins; B96.20 Unspecified Escherichia coli [E. coli] as the cause of diseases classified elsewhere; R00.0 Tachycardia, unspecified